=== PATIENT | female | born 2000 | race African-American/Black ===

== ENCOUNTER 2024-03-06 20:04 | Emergency (ER) | payer MEDICAID ==
[~2024-03-06] VITALS: Ht 172.7 cm; Wt 66.0 kg
[2024-03-06 20:17] VITALS: BP 122/72; PULSE 91; RESP 18; TEMP 97.7; O2SAT 100
[2024-03-06 21:04] LABS: BASOPHILS % 0.4 % (0.0-2.0); EOSINOPHILS % 0.1 % (0.0-5.0); HEMATOCRIT. 38.1 % (36.0-48.0); HEMOGLOBIN. 12.5 g/dL (12.0-16.0); LYMPHOCYTES % 12.4 % (20.0-50.0); MEAN CORPUSCULAR HEMOGLOBIN 30.3 pg (28.0-32.0); MEAN CORPUSCULAR HGB CONC 32.9 g/dL (31.0-37.0); MEAN CORPUSCULAR VOLUME 91.9 fL (81.0-99.0); MEAN PLATELET VOLUME 8.5 fl (7.4-10.4); MONOCYTES % 3.7 % (2.0-8.0); NEUTROPHILS % 83.4 % (40.0-76.0); PLATELET 321 x1000/uL (130-400); RED BLOOD CELL COUNT 4.15 mill/uL (4.2-5.4); RED CELL DISTRIBUTION WIDTH 13.2 % (11.6-14.6); WHITE BLOOD COUNT 8.3 x1000/uL (4.5-11.0)
[2024-03-06 21:15] LABS: CHLORIDE 102 mEq/L (98-107); POTASSIUM 4.6 mEq/L (3.5-5.1); SODIUM 138 mEq/L (136-145)
[2024-03-06 21:16] LABS: CALCIUM 9.3 mg/dL (8.7-10.4); CARBON DIOXIDE 28 mEq/L (21-32)
[2024-03-06 21:21] LABS: CREATININE 0.9 mg/dL (0.6-1.0); GLUCOSE 114 mg/dL (70-105); UREA NITROGEN BLOOD 10 mg/dL (9-23)
[2024-03-06 21:23] LABS: ALANINE AMINOTRANSFERASE 55 IU/L (10-49); ALBUMIN 4.4 g/dL (3.2-4.8); ASPARTATE AMINOTRANSFERASE 31 IU/L (<34); BILIRUBIN TOTAL 0.5 mg/dL (0.1-1.0); PROTEIN TOTAL 7.3 g/dL (6.0-8.3)
[2024-03-06] MEDS ORDERED: ONDA4TAB11 PO (22:13)
[2024-03-06 23:03] LABS: HCG SCREEN NEGATIVE
[2024-03-06] MEDS: CEFTRIAXONE SODIUM 500MG VIAL IM ONE (23:15)
[2024-03-06] MEDS ORDERED: DOXY100C5 MT (23:30)
== END 2024-03-07 00:07 | disposition home or self-care (01) ==
LOC: ER 20:04
DX: R11.2 Nausea with vomiting, unspecified (principal); F41.9 Anxiety disorder, unspecified; F32.9 Major depressive disorder, single episode, unspecified
CPT/HCPCS: 99284; 87491; 87591; 80053; 81025; 84703; 83690; 85025; 87210; 36415; 96372; J0696

== ENCOUNTER 2024-09-25 09:30 | Emergency (ER) | payer MEDICAID ==
[~2024-09-25] VITALS: Ht 170.2 cm; Wt 73.0 kg
[~2024-09-25 09:30] MED LIST: DOXY100C5 MT; ONDA-239 PO
[2024-09-25 09:38] VITALS: BP 100/69; PULSE 110; RESP 14; TEMP 98; O2SAT 100
[2024-09-25] MEDS: ONDANSETRON 4MG ODT PO STA (11:04)
[2024-09-25] MEDS: IBUPROFEN 600MG TABLET PO STA (11:09)
[2024-09-25] MEDS: ACETAMINOPHEN 325MG TABLET PO STA (11:09)
[2024-09-25 11:36] LABS: BASOPHILS % 0.1 % (0.0-2.0); DIFFERENTIAL COMMENT 0; EOSINOPHILS % 0.5 % (0.0-5.0); HEMATOCRIT. 39.6 % (36.0-48.0); HEMOGLOBIN. 12.4 g/dL (12.0-16.0); LYMPHOCYTES % 10.7 % (20.0-50.0); MEAN CORPUSCULAR HGB CONC 31.4 g/dL (31.0-37.0); MEAN CORPUSCULAR VOLUME 95.5 fL (81.0-99.0); MEAN PLATELET VOLUME 8.7 fl (7.4-10.4); MONOCYTES % 10.5 % (2.0-8.0); NEUTROPHILS % 78.2 % (40.0-76.0); PLATELET 289 x1000/uL (130-400); RED BLOOD CELL COUNT 4.14 mill/uL (4.2-5.4); RED CELL DISTRIBUTION WIDTH 13.8 % (11.6-14.6); WHITE BLOOD COUNT 6.6 x1000/uL (4.5-11.0)
[2024-09-25 11:52] LABS: CHLORIDE 108 mEq/L (98-107); POTASSIUM 3.9 mEq/L (3.5-5.1); SODIUM 139 mEq/L (136-145)
[2024-09-25 11:53] LABS: CARBON DIOXIDE 21 mEq/L (21-32)
[2024-09-25 11:58] LABS: CREATININE 0.7 mg/dL (0.6-1.0); GLUCOSE 66 mg/dL (70-105); UREA NITROGEN BLOOD 8 mg/dL (9-23)
[2024-09-25 12:34] LABS: CLARITY URINE CLEAR (CLEAR); COLOR URINE YELLOW (YELLOW); GLUCOSE URINE NEGATIVE (NEGATIVE); KETONES URINE 1+ (NEGATIVE); LEUKOCYTE ESTERASE URINE 1+ (NEGATIVE); NITRITE URINE NEGATIVE (NEGATIVE); OCCULT BLOOD URINE NEGATIVE (NEGATIVE); PROTEIN URINE NEGATIVE (NEGATIVE); UROBILINOGEN URINE 0.2 E.U./dL (0.2-1.0)
[2024-09-25 12:56] LABS: BACTERIA URINE 1+; RBC URINE 0-2 /hpf (0-2); SQUAMOUS EPITHELIAL CELL URINE 3+ /lpf (RARE/1+); YEAST URINE NONE SEEN
== END 2024-09-25 13:01 | disposition home or self-care (01) ==
LOC: ER 09:39
DX: R53.1 Weakness (principal); F41.9 Anxiety disorder, unspecified; F32.A Depression, unspecified
CPT/HCPCS: 99284; 80048; 81003; 81025; 83690; 85025; 36415; 93005; Q0162

== ENCOUNTER 2025-09-13 17:23 | Emergency (ER) | payer MEDICAID ==
[~2025-09-13] VITALS: Ht 170.2 cm; Wt 73.0 kg
[2025-09-13 17:30] VITALS: O2SAT 98
[2025-09-13] MEDS: PROCHLORPERAZINE 10MG/2ML VIAL IV ONE (18:41)
[2025-09-13] MEDS: ONDANSETRON 4MG ODT PO ONE (18:42)
[2025-09-13] MEDS: SODIUM CHLORIDE 0.9% 1,000 ML IV ONE (18:42)
[2025-09-13 18:49] VITALS: BP 116/71; PULSE 89; RESP 16; TEMP 37.2; O2SAT 98
== END 2025-09-13 18:51 | disposition home or self-care (01) ==
LOC: ER 17:23
DX: R11.2 Nausea with vomiting, unspecified (principal); F15.90 Other stimulant use, unspecified, uncomplicated; F32.A Depression, unspecified; F41.9 Anxiety disorder, unspecified
CPT/HCPCS: 99283; Q0162; J7030; J0780